=== PATIENT | female | born 1935 | race Two or more races ===

== ENCOUNTER → 2018-06-23 | Outpatient (CLI) | payer OTHER ==
[2016-04-20 23:55] VITALS: BP 143/80
[~2018-06-23] MED LIST: ONDA4TAB10 SL
[2018-06-23 11:48] LABS: BASO # 0.1 x10^3/uL (0.0-0.2); BASO % 1 % (0-3); EOS # 0.1 x10^3/uL (0.0-0.7); EOS % 2 % (0-3); HEMATOCRIT 38.6 % (36.0-47.0); HEMOGLOBIN 13.2 g/dL (12.0-15.5); LYMPH # 2.3 x10^3/uL (1.0-4.8); LYMPH % 42 % (24-48); MEAN CORPUSCULAR HEMOGLOBIN 32 pg (25-35); MEAN CORPUSCULAR HGB CONC 34 g/dL (31-37); MEAN CORPUSCULAR VOLUME 92 fL (79-100); MONO # 0.7 x10^3/uL (0.0-1.1); MONO % 13 % (0-9); NEUT # 2.4 x10^3uL (1.8-7.7); NEUT % 43 % (31-73); PLATELET COUNT 162 x10^3/uL (140-400); RED BLOOD COUNT 4.18 x10^6/uL (3.50-5.40); RED CELL DISTRIBUTION WIDTH 14.2 % (11.5-14.5); WHITE BLOOD COUNT 5.6 x10^3/uL (4.0-11.0)
[2018-06-23 12:00] LABS: ALBUMIN 3.7 g/dL (3.4-5.0); ALBUMIN/GLOBULIN RATIO 0.8 (1.0-1.7); CALCIUM 9.5 mg/dL (8.5-10.1); CREATININE 0.7 mg/dL (0.6-1.0); GFR 80.1; POTASSIUM 3.9 mmol/L (3.5-5.1); TOTAL BILIRUBIN 0.3 mg/dL (0.2-1.0); TOTAL PROTEIN 8.6 g/dL (6.4-8.2)
[2018-06-23 21:16] LABS: HEMOGLOBIN A1C 5.6 % (4.8-5.6)
== END | disposition home or self-care (01) ==
LOC: LAB 11:11
PROVIDERS: ATTEND Family Medicine
DX: I10 Essential (primary) hypertension (principal); E03.9 Hypothyroidism, unspecified; R73.09 Other abnormal glucose
CPT/HCPCS: 36415; 80053; 83036; 84443; 85025

== ENCOUNTER → 2018-12-22 | Outpatient (CLI) | payer OTHER ==
[2016-04-20 23:55] VITALS: BP 143/80
--- NOTE | 2018-12-22 16:55 | RAD ---
MRI Thoracic Spine without contrast History: Compression fracture T7, pain Technique: Multiplanar, multi sequential noncontrast MR imaging was performed of the thoracic spine. Comparison: None Findings: Thoracic cord caliber is within normal limits without focal signal abnormality. There is very mild inferior endplate concavity of T8 and very mild anterior wedge deformity of T7 not associated with marrow edema. There are some other small Schmorl's nodes present. There is mild to moderate degenerative disc disease T7-8, T9-10, to lesser degree at other levels. There is negligible posterior protrusion T8-9. There is small hemangioma of L1. There is thoracic dextroscoliosis. There is no significant thoracic spinal stenosis. Thoracic neural foramina are not significantly narrowed. As seen at the superior aspect of exam and not fully evaluated, there is cervical degenerative disc disease at the visualized C5-C6 through C7-T1. There could be some nodularity of the right thyroid gland poorly evaluated on this exam. Impression: 1. There is no evidence of recent thoracic compression fracture. There is some variable degenerative disc disease. There is thoracic dextroscoliosis. 2. There is degenerative disc disease of visualized inferior cervical levels, cervical spine not fully evaluated. 3. There could be some nodularity of right thyroid gland poorly evaluated on this exam, could be evaluated with ultrasound if clinically needed. Electronically signed by: Ashkan Longo MD (12/22/2018 4:51 PM) [id number]
== END | disposition home or self-care (01) ==
LOC: MRI 15:10
PROVIDERS: ATTEND Family Medicine
DX: M50.33 Other cervical disc degeneration, cervicothoracic region (principal); M51.24 Other intervertebral disc displacement, thoracic region
CPT/HCPCS: 72146

== ENCOUNTER 2020-12-18 14:40 | Emergency (ER) | payer MEDICAID, OTHER ==
[~2020-12-18] VITALS: Ht 160 cm; Wt 63.6 kg
--- NOTE | 2020-12-18 14:57 | PHYS DOC ---
Past Medical History Past Medical History: Hypertension Past Medical History ALZHEIMERS Past Surgical History: Other Additional Past Surgical Histo: hernia repair Smoking Status: Never Smoker Alcohol Use: None Drug Use: None General Adult EDM: Chief Complaint: VOMITING HPI: HPI: 85-year-old female present emergency department today with one episode of vomiting. She was taking her Alzheimer medication and then subsequently vomited 1 time. Not persistent. This by nursing report is an every day occurrence for the patient and not new or unusual. The patient denies any complaints or any pain she had the one episode of vomiting and is without any symptoms currently. Onset today. Location GI tract. Duration constant. No relieving factors. Review of systems negative for chest pain shortness of breath fevers cough headache. All other review of systems negative. Heart Score: C/O Chest Pain: No Risk Factors: Risk Factors: DM, Current or recent (<one month) smoker, HTN, HLP, family history of CAD, obesity. Risk Scores: Score 0 - 3: 2.5% MACE over next 6 weeks - Discharge Home Score 4 - 6: 20.3% MACE over next 6 weeks - Admit for Clinical Observation Score 7 - 10: 72.7% MACE over next 6 weeks - Early Invasive Strategies Allergies: Allergies: Allergies Coded Allergies Type Severity Reaction Last Updated Verified No Known Drug Allergies 04/20/16 No Physical Exam: PE: Constitutional: Well developed, well nourished, no acute distress, non-toxic appearance. [] HENT: Normocephalic, atraumatic, bilateral external ears normal, oropharynx moist, no oral exudates, nose normal. [] Eyes: PERRLA, EOMI, conjunctiva normal, no discharge. [] Neck: Normal range of motion, no tenderness, supple, no stridor. [] Cardiovascular:Heart rate regular rhythm, no murmur [] Lungs & Thorax: Bilateral breath sounds clear to auscultation [] Abdomen: Bowel sounds normal, soft, no tenderness, no masses, no pulsatile masses. [] Nondistended. No rebound tenderness or guarding. Negative McBurney's point. Negative Schmid sign. Skin: Warm, dry, no erythema, no rash. [] Back: No tenderness, no CVA tenderness. [] Extremities: No tenderness, no cyanosis, no clubbing, ROM intact, no edema. [] Neurologic: Alert and oriented X 3, normal motor function, normal sensory function, no focal deficits noted. [] Psychologic: Affect normal, judgement normal, mood normal. [] EKG: EKG: [] EKG shows sinus rhythm with regular rate. ST segments congruent. Not suggestive of acute ischemia. Radiology/Procedures: Radiology/Procedures: [] Course & Med Decision Making: Course & Med Decision Making Pertinent Labs and Imaging studies reviewed. (See chart for details) [] On arrival the patient is afebrile with a normal heart rate. Her blood pressure initially was elevated 200/98. She is well-appearing on examination with a normal physical examination. Blood work shows a nonspecific leukocytosis of 14.9. Hemoglobin within normal limits. Chemistry panel unremarkable. Chest x-ray unremarkable. CT abdomen pelvis unremarkable for acute pathology. On reexamination the patient is comfortable in the examination room she has a soft and nontender abdomen. She has had no vomiting here in the emergency department and is feeling much better has not had any symptoms in the emergency department. We will discharge her back to follow-up with PCP in 1 to 2 days or to return if she has another episode of vomiting. Dragon Disclaimer: Dragon Disclaimer: This electronic medical record was generated, in whole or in part, using a voice recognition dictation system. Departure Departure Impression: Primary Impression: Vomiting Disposition: 01 HOME / SELF CARE / HOMELESS Condition: STABLE Referrals: BO PFEIFFER MD (PCP) Patient Instructions: Nausea and Vomiting, [id number] Additional Instructions: EMERGENCY DEPARTMENT GENERAL DISCHARGE INSTRUCTIONS Follow-up with your primary physician in 1 to 2 days. Return to the emergency department if you have any new or concerning findings. Thank you for coming to [facility] Emergency Department (ED) today and trusting us with you care. We trust that you had a positive experience in our Emergency Department. If you wish to speak to the department management, you may call the Director at [phone]. Follow up is important in emergency/acute care visits. This condition should be evaluated by your primary care physician and any necessary consulting services for continued management within a few days (1-2) after discharge. Return to the emergency department if you have any new or concerning symptoms including but not limited to fever, chills, nausea, vomiting, intractable pain, any new rashes, chest pain, shortness of breath, uncontrolled bleeding, difficulty breathing, and/or vision loss. 1. Do you have a private Doctor? If you do not have a private doctor, please ask for a resource list of physicians or clinics that may be able to assist you with follow up care. 2. If a lab test or culture has been done and does not come back immediately, your results will be reviewed and you will be notified if you need a change in treatment. 3. Your care today has been supervised by a physician who is specially trained in emergency care. Many problems require more than one evaluation for a complete diagnosis and treatment. We recommend that you schedule your follow up appointment as recommended to ensure complete treatment of you illness or injury. If you are unable to obtain follow up care and continue to have a problem, or if your condition worsens, we recommend that you return to the ED. 4. We are not able to safely determine your condition over the phone nor are we able to give sound medical advice over the phone. For these safety reasons, if you call for medical advice we will ask you to come to the ED for further evaluation. IF YOUR SYMPTOMS WORSEN OR NEW SYMPTOMS DEVELOP, OR YOU HAVE CONCERNS ABOUT YOUR CONDITION; OR IF YOUR CONDITION WORSENS WHILE YOU ARE WAITING FOR YOUR FOLLOW UP APPOINTMENT; EITHER CONTACT YOUR PRIMARY CARE DOCTOR, THE PHYSICIAN WHOSE NAME AND NUMBER YOU WERE GIVEN, OR RETURN TO THE ED IMMEDIATELY. JAUN LIRA MD Dec 18, 2020 14:57
--- NOTE | 2020-12-18 15:34 | RAD ---
XR CHEST 1V CLINICAL INDICATIONS: Vomiting COMPARISON: None available. Findings: No acute lung infiltrate or pleural effusion or pulmonary edema or lung mass or pneumothora x is seen. The heart size is prominent some of which is due to rotation towards the left side and AP magnification. Small hiatal hernia is seen. The pulmonary vasculature, mediastinum and both rivas are otherwise unremarkable. IMPRESSION: Small hiatal hernia. No acute radiographic abnormality is seen. Electronically signed by: Jerel Luevano MD (12/18/2020 3:31 PM) [id number]
--- NOTE | 2020-12-18 16:14 | RAD ---
Exam: CT of abdomen and pelvis without contrast INDICATION: Vomiting TECHNIQUE: Sequential axial images through the abdomen and pelvis obtained without IV contrast. Sagit alexandr and coronal reformatted images were reconstructed from the axial data and reviewed. Exposure: One or more of the following in the visualized dose reduction techniques were utilized for this examination: 1. Automated exposure control 2. Adjustment of the MA and/or KV according to patient size 3. Use of iterative of reconstructive technique Comparisons: None FINDINGS: Heart size is normal. No pericardial effusion strandy opacities at the dependent portion lungs likely representing atelectasis. No pleural effusion. Evaluation of the solid organs is limited secondary to noncontrast technique. Liver, spleen, pancreas and adrenals are unremarkable. Gallbladder is mildly distended. No perinephric inflammation or hydronephrosis. No renal or ureteral calculi are identified. Bladder is partially distended and appears thin-walled. Uterus is not enlarged. No abnormal adnexal m ass. Few scattered diverticula noted in the sigmoid colon. Moderate amount of stool is noted throughout th e colon. Appendix is not identified. No obstruction. No free intra-abdominal air or fluid. Abdominal aorta has a normal course and caliber. No enlarged intra-abdominal lymph nodes are identified. No suspicious osseous lesions or acute fractures. IMPRESSION: 1. No acute processes identified within the abdomen or pelvis. Moderate amount stool noted in the co titi. Correlate for constipation. 2. Small hiatal hernia. Electronically signed by: Laurie De Dios MD (12/18/2020 4:12 PM) [facility]
[2020-12-18 16:46] LABS: BASO # 0.1 x10^3/uL (0.0-0.2); BASO % 0 % (0-3); EOS % 0 % (0-3); HEMATOCRIT 39.2 % (36.0-47.0); HEMOGLOBIN 13.5 g/dL (12.0-15.5); LYMPH # 1.3 x10^3/uL (1.0-4.8); LYMPH % 9 % (24-48); MEAN CORPUSCULAR HEMOGLOBIN 31 pg (25-35); MEAN CORPUSCULAR HGB CONC 34 g/dL (31-37); MEAN CORPUSCULAR VOLUME 91 fL (79-100); MONO # 0.6 x10^3/uL (0.0-1.1); MONO % 4 % (0-9); NEUT # 12.9 x10^3/uL (1.8-7.7); NEUT % 87 % (31-73); PLATELET COUNT 249 x10^3/uL (140-400); RED BLOOD COUNT 4.31 x10^6/uL (3.50-5.40); RED CELL DISTRIBUTION WIDTH 15.1 % (11.5-14.5); WHITE BLOOD COUNT 14.9 x10^3/uL (4.0-11.0)
[2020-12-18 16:49] LABS: BILIRUBIN,URINE NEGATIVE (NEG); CLARITY,URINE CLEAR; COLOR,URINE YELLOW; NITRITE,URINE NEGATIVE (NEG); PROTEIN,URINE 100 mg/dL (NEG-TRACE); UROBILINOGEN,URINE 0.2 mg/dL (0.2 mg/dL)
[2020-12-18 17:16] LABS: BACTERIA,URINE 0 /HPF (0-FEW); RBC,URINE OCC /HPF (0-2); WBC,URINE OCC /HPF (0-4)
--- NOTE | 2020-12-18 17:21 | EKG ---
[facility] [address] [place] [address] Test Date: 2020-12-18 Test Time: 16:10:03 Pat Name: ELIDA BURGOS Department: Room: Gender: F Millwright Apprentice: [id number] : 1935 Requested By: JAUN LIRA Order Number: [id number] Reading MD: Measurements Intervals Butler Rate: 82 P: 45 WV: 180 QRS: -31 QRSD: 94 T: 16 QT: 368 QTc: 433 Interpretive Statements SINUS RHYTHM ABNORMAL LEFT AXIS DEVIATION LEFT ANTERIOR FASCICULAR BLOCK CONSIDER LEFT VENTRICULAR HYPERTROPHY ABNORMAL ECG RI6.01 No previous ECG available for comparison
[2020-12-18 17:25] LABS: CREATININE ISTAT 0.6 mg/dL (0.5-1.4); HEMOGLOBIN ISTAT 14.3 g/dL (12-15); ION CA ISTAT 1.09 mmol/L (1.13-1.32); POTASSIUM ISTAT 3.7 mmol/L (3.5-5.0)
[2020-12-18 17:41] LABS: CALCIUM 9.5 mg/dL (8.5-10.1); CREATININE 0.7 mg/dL (0.6-1.0); GFR 79.7
[2020-12-18 17:47] LABS: ALBUMIN 4.3 g/dL (3.4-5.0); DIRECT BILIRUBIN 0.1 mg/dL (0.0-0.2); TOTAL BILIRUBIN 0.4 mg/dL (0.2-1.0); TOTAL PROTEIN 8.4 g/dL (6.4-8.2)
[2020-12-18 18:30] VITALS: BP 166/76
[2020-12-18 18:56] LABS: % BANDS 13 % (0-9); % LYMPHS 11 % (24-48); % MONOS 5 % (0-10); % SEGS 71 % (35-66); PLT ESTIMATE ADEQUATE (ADEQUATE)
== END 2020-12-18 18:35 | disposition home or self-care (01) ==
LOC: ER 14:40
DX: R11.10 Vomiting, unspecified (principal); I10 Essential (primary) hypertension; G30.9 Alzheimer's disease, unspecified
CPT/HCPCS: 36415; 71045; 74176; 80047; 80048; 80076; 81001; 83690; 84484; 85007; 85025; 93005; 99285